=== PATIENT | female | born 1960 | race Caucasian/White ===

== ENCOUNTER 2017-06-24 01:05 | Inpatient (IN) | payer MEDICAID ==
[~2017-06-24] VITALS: Ht 167.6 cm; Wt 51.4 kg
[2017-06-24] VITALS (8 sets, daily range): BP systolic 108–143; BP diastolic 67–89
--- NOTE | ~2017-06-24 | ST ---
[place], [place] EXERCISE STRESS TEST REPORT NAME[id number] UNIT #: [id number] ROOM: 507 DOCTOR: SHAREE BUENROSTRO MD BIRTHDATE: [birth year] DOS: 06/24/2017 INDICATION: Chest pain. PROCEDURE: The patient was brought into the stress lab. The procedure was explained with risks, benefits, and alternatives. Lexiscan was injected. The patient has significant GI symptoms along with shortness of breath following the injection. BLOOD PRESSURE RESPONSE: Resting blood pressure 100/62 with ending blood pressure 104/52. ELECTROCARDIOGRAM INTERPRETATION: Resting electrocardiogram showed normal sinus rhythm, heart rate of 74. There is poor R progression with RSR prime in V1 and V2. Significant ST-T changes in the inferolateral leads. Following the infusion, there was no significant further deterioration of the patient's baseline EKG changes. No arrhythmias were noted. SUMMARY: 1. Adequate Lexiscan stress test. 2. Negative Lexiscan stress test for stress induced myocardial ischemia. 3. No arrhythmias were noted. 4. Myoview results will be reported separately. SHAREE BUENROSTRO MD CM:STRESS:EXERCISE STRESS TEST REPORT [id number] SHAREE BUENROSTRO MD
--- NOTE | ~2017-06-24 | CON ---
[place], [place] REPORT OF CONSULTATION NAME: OZ HART UNIT #: [id number] ROOM: 507 DOCTOR: SHAREE BUENROSTRO MD BIRTHDATE: [birth year] DOS: REQUESTING PHYSICIAN: Dr. Crooks. REASON FOR CONSULTATION: Chest pain. ASSESSMENT: 1. Current presentation with complaint of chest pain that is worse by deep inspiration. 2. Similar complaint back in 1981 where the patient was diagnosed with pericarditis. 3. Active tobacco abuse. 4. Unknown level of lipid. 5. Marijuana abuse. 6. History of migraine. 7. Significantly abnormal baseline EKG. PLAN: 1. ____ enzymes. 2. Check D-dimer. 3. Check CRP. 4. Echocardiogram. 5. Nothing by mouth for a Lexiscan stress test. 6. Enteric-coated aspirin 81 mg. 7. Lipid management for LDL less than 100 mg per dL. 8. Smoking cessation. 9. Early followup as an outpatient within 2-4 weeks upon discharge. HISTORY AND PHYSICAL: The patient is a pleasant 56-year-old female unknown to our practice, was referred by Dr. Crooks for evaluation of chest pain that occurred last night while resting. Pain is left-sided, substernal, almost 6/10, lasted 2 hours. The pain is worse with deep inspiration, surprising enough it gets worse when the patient is still or lie flat. The patient does get worse also if patient moves right to left. The patient is recovering from recent flu-like symptoms over the past 3-4 days. The patient did get slightly nauseated and some chills, but no fever, no night sweats. Reported decreased appetite but no weight loss. The patient is active, but does not follow a regular exercise program. She can walk over a mile but main limitation after that is her low back pain. Never had any symptomatic palpitation or any associated dizziness, lightheadedness or near syncope. Overall what she does now is similar to what she did 6 months ago. No PND, no orthopnea or pedal edema. No reported snoring. PAST MEDICAL HISTORY: As detailed in my assessment. SOCIAL HISTORY: The patient continued to smoke about half pack a day, has been doing this for the past 30 years. No heavy alcohol or illicit drug abuse. FAMILY HISTORY: The patient's dad when she was 6-year-old from a car accident. Her mother is alive at age 75. She has 2 brothers and 2 sisters and no reported [place], [place] REPORT OF CONSULTATION NAME: OZ HART UNIT #: [id number] ROOM: 507 DOCTOR: SHAREE BUENROSTRO MD BIRTHDATE: [birth year] heart problems. CURRENT MEDICATIONS: Lovenox, Protonix, Zofran, Dulcolax, Tylenol, Toradol, and aspirin. ALLERGIES: The patient is allergic to MORPHINE and CODEINE. REVIEW OF SYSTEMS: Currently, the patient denies any headache, diplopia or blurry vision. No fever, no chills, no night sweats. No abdominal pain, no bright blood per rectum or tarry stools. No joint pain, no muscular pain. No anxiety, no depression. No polyuria, no polydipsia, no skin rash. Review of all other systems has been negative. PHYSICAL EXAMINATION: GENERAL: The patient is alert and oriented x 3 ____. VITAL SIGNS: Blood pressure 121/68, heart rate 71, respiratory rate of 16, temperature 98.2. HEENT: Extraocular muscles intact. Pupils equal, round, reactive to light. Conjunctivae: No pallor. Throat: No petechiae. NECK: Good upstroke. Unable to appreciate any bruit, no lymphadenopathy, no thyromegaly. HEART: S1, S2 with faint holosystolic murmur left upper sternal border, unable to appreciate any rub. No retrosternal heave. CHEST AND BACK: No deformities. LUNGS: Clear to auscultation. Good air movement. No wheezing, rales. ABDOMEN: Soft, nontender, present bowel sounds, no masses, no bruits. EXTREMITIES: Lower extremities, no edema. Good distal pulses. NEUROLOGIC: Grossly nonfocal. SKIN: No significant rash. Electrocardiogram showing normal sinus rhythm, heart rate of 79. There is RSR prime in V1 and V2, significant ST depression in inferolateral leads with low voltage QRS. QTc is 436 milliseconds. LABORATORY DATA: White count is 17.0. There is increase in lymphocytes, hemoglobin is 13.9, INR 1.0. Potassium 3.5, BUN 8, creatinine 0.7, GFR more than 60%, low ALT. Troponin less than 0.015. SHAREE BUENROSTRO MD CM:CONSTR:REPORT OF CONSULTATION 0 06/25/17 [id number] interface
[~2017-06-24 01:05] MED LIST: ULTRAM50 MG PO
[2017-06-24 01:20] LABS: BASO # 0.1 10*3/uL (0.0-0.1); BASO % 0.4 % (0.0-1.0); EOS # 0.1 10*3/uL (0.0-0.4); EOS % 0.7 % (1.0-4.0); HEMATOCRIT 41.5 % (37.0-47.0); HEMOGLOBIN 13.9 g/dl (12.0-16.0); IG # 0.1 10*3/uL (0.0-0.1); LYMPH # 3.3 10*3/uL (1.3-4.4); LYMPH % 19.6 % (27.0-41.0); MEAN CELL VOLUME 94.1 fl (81.0-99.0); MEAN CORPUSCULAR HGB 31.5 pg (27.0-31.0); MEAN CORPUSCULAR HGB CONC 33.5 g/dl (33.0-37.0); MEAN PLATELET VOLUME 9.3 fl (9.6-12.3); MONO # 1.4 10*3/uL (0.1-1.0); MONO % 8.2 % (3.0-9.0); NEUT % 70.7 % (47.0-73.0); PLATELET COUNT AUTOMATED 229 10*3/uL (130-400); RED BLOOD COUNT 4.41 10*6/uL (4.10-5.10); RED CELL DISTRI WIDTH 12.4 % (0-14.5)
[2017-06-24 01:28] LABS: PROTHROMBIN TIME 10.4 SECONDS (9.0-12.4)
[2017-06-24 01:36] LABS: ALBUMIN 4.2 gm/dl (3.1-4.5); ALKALINE PHOSPHATASE 101 U/L (45-117); BILIRUBIN, TOTAL 0.5 mg/dl (0.2-1.0); BUN 8 mg/dl (7-24); CARBON DIOXIDE 26 mmol/L (21-32); CHLORIDE 110 mmol/L (98-107); EST GLOM FILT AFRICAN AMERICAN > 60 ml/min; GLUCOSE 121 mg/dL (65-99); MAGNESIUM 2.2 mg/dL (1.5-2.1); POTASSIUM 3.5 mmol/L (3.5-5.1); SGOT/AST 9 IU/L (3-35); SGPT/ALT 11 U/L (12-78); SODIUM 143 mmol/L (136-145); TOTAL PROTEIN 7.5 gm/dL (6.4-8.2)
[2017-06-24 01:37] LABS: TROPONIN I < 0.015 ng/ml (<0.045)
== END 2017-06-24 18:40 | disposition home or self-care (01) | DRG 313 ==
LOC: ED 01:05 → EDHOLD 02:09 → 5E 02:09
PROVIDERS: Student in an Organized Health Care Education/Training Program
PROC: 4A02XM4 Measurement of Cardiac Total Activity, External Approach (ICD-10-PCS; principal; 2017-06-24)
PROC: 3E073KZ Introduction of Other Diagnostic Substance into Coronary Artery, Percutaneous Approach (ICD-10-PCS; 2017-06-24)
DX: R07.89 Other chest pain (principal); E46 Unspecified protein-calorie malnutrition; E87.8 Other disorders of electrolyte and fluid balance, not elsewhere classified; Z68.1 Body mass index [BMI] 19.9 or less, adult; G43.909 Migraine, unspecified, not intractable, without status migrainosus; D72.829 Elevated white blood cell count, unspecified; R11.0 Nausea; R05 Cough; R94.31 Abnormal electrocardiogram [ECG] [EKG]; F12.10 Cannabis abuse, uncomplicated; R73.9 Hyperglycemia, unspecified; F17.210 Nicotine dependence, cigarettes, uncomplicated; Z88.5 Allergy status to narcotic agent; Z88.8 Allergy status to other drugs, medicaments and biological substances; Z83.3 Family history of diabetes mellitus; Z82.49 Family history of ischemic heart disease and other diseases of the circulatory system

== ENCOUNTER 2020-12-26 22:00 | Observation (INO) | payer OTHER ==
[~2020-12-26] VITALS: Ht 165.1 cm; Wt 56.8 kg
[2020-12-26 22:10] VITALS: BP 171/95
[2020-12-26 22:17] LABS: BASO # 0.1 10*3/uL (0.0-0.1); BASO % 0.7 % (0.0-1.0); EOS # 0.2 10*3/uL (0.0-0.4); EOS % 1.6 % (1.0-4.0); HEMATOCRIT 44.5 % (37.0-47.0); LYMPH # 4.4 10*3/uL (1.3-4.4); LYMPH % 36.1 % (27.0-41.0); MEAN CELL VOLUME 91.9 fl (81.0-99.0); MEAN CORPUSCULAR HGB 30.8 pg (27.0-31.0); MEAN CORPUSCULAR HGB CONC 33.5 g/dl (33.0-37.0); MONO # 0.8 10*3/uL (0.1-1.0); MONO % 6.2 % (3.0-9.0); NEUT # 6.7 10*3/uL (2.3-7.9); NEUT % 55.2 % (47.0-73.0); PLATELET COUNT AUTOMATED 283 10*3/uL (130-400); RED BLOOD COUNT 4.84 10*6/uL (4.10-5.10); RED CELL DISTRI WIDTH 12.1 % (0-14.5); WHITE BLOOD COUNT 12.2 10*3/uL (4.8-10.8)
[2020-12-26 22:28] LABS: ACT PARTIAL THROMBO TIME 25.6 SECONDS (20.0-32.1)
[2020-12-26 22:34] LABS: ALBUMIN 4.6 gm/dl (3.1-4.5); ALKALINE PHOSPHATASE 89 U/L (45-117); BUN 12 mg/dl (7-24); CHLORIDE 111 mmol/L (98-107); CREATININE 0.91 mg/dL (0.55-1.02); POTASSIUM 3.3 mmol/L (3.5-5.1); SGOT/AST 8 IU/L (3-35); SGPT/ALT 14 U/L (12-78); SODIUM 142 mmol/L (136-145); TOTAL PROTEIN 7.9 gm/dL (6.4-8.2)
[2020-12-26 22:47] VITALS: BP 122/79
[2020-12-26 22:49] LABS: TROPONIN I < 0.015 ng/ml (<0.045)
[2020-12-26 23:10] VITALS: BP 139/86
[2020-12-27 00:21] VITALS: BP 129/87
[2020-12-27 01:34] VITALS: BP 136/80
[2020-12-27 04:33] LABS: BASO # 0.1 10*3/uL (0.0-0.1); BASO % 0.6 % (0.0-1.0); EOS # 0.2 10*3/uL (0.0-0.4); EOS % 1.6 % (1.0-4.0); HEMATOCRIT 42.5 % (37.0-47.0); LYMPH # 4.4 10*3/uL (1.3-4.4); LYMPH % 34.2 % (27.0-41.0); MEAN CORPUSCULAR HGB 31.2 pg (27.0-31.0); MEAN CORPUSCULAR HGB CONC 33.9 g/dl (33.0-37.0); MONO # 0.9 10*3/uL (0.1-1.0); MONO % 6.8 % (3.0-9.0); NEUT # 7.2 10*3/uL (2.3-7.9); NEUT % 56.6 % (47.0-73.0); PLATELET COUNT AUTOMATED 258 10*3/uL (130-400); RED BLOOD COUNT 4.62 10*6/uL (4.10-5.10); RED CELL DISTRI WIDTH 12.2 % (0-14.5); WHITE BLOOD COUNT 12.8 10*3/uL (4.8-10.8)
[2020-12-27 05:04] LABS: ALBUMIN 4.1 gm/dl (3.1-4.5); ALKALINE PHOSPHATASE 81 U/L (45-117); BUN 11 mg/dl (7-24); CHLORIDE 115 mmol/L (98-107); CHOLESTEROL 212 mg/dL (<200); HDL CHOLESTEROL 45 mg/dl (40-60); LDL CHOLESTEROL 139 mg/dL (9-159); POTASSIUM 3.9 mmol/L (3.5-5.1); SGOT/AST 7 IU/L (3-35); SGPT/ALT 13 U/L (12-78); SODIUM 144 mmol/L (136-145); TOTAL PROTEIN 7.1 gm/dL (6.4-8.2); TRIGLYCERIDES 139 mg/dl (<150); VLDL CHOLESTEROL 28 mg/dL (6-40)
[2020-12-27 06:43] LABS: VITAMIN D, 25-HYDROXY 21.8 ng/mL (30-100)
[2020-12-27 08:00] VITALS: BP 140/84
[2020-12-27] MEDS ORDERED: VITAMIN D350 MC2 PO (10:01)
[2020-12-27] MEDS ORDERED: LIPITOR40 MG PO (10:01)
[2020-12-27 12:00] VITALS: BP 144/78
[2020-12-27 16:00] VITALS: BP 136/79
== END 2020-12-27 18:41 | disposition home or self-care (01) ==
LOC: ED 22:00 → EDHOLD 23:15 → 5E 12-27 01:16
PROVIDERS: Internal Medicine; Social Worker Clinical; ADMIT Family Medicine; ATTEND Family Medicine
DX: E87.6 Hypokalemia (principal); R10.9 Unspecified abdominal pain; R19.7 Diarrhea, unspecified; R42 Dizziness and giddiness; F41.9 Anxiety disorder, unspecified; R00.2 Palpitations; D72.829 Elevated white blood cell count, unspecified; E87.8 Other disorders of electrolyte and fluid balance, not elsewhere classified; E83.41 Hypermagnesemia; R73.9 Hyperglycemia, unspecified; F17.200 Nicotine dependence, unspecified, uncomplicated; Z79.899 Other long term (current) drug therapy

== ENCOUNTER → 2022-01-20 | Outpatient (CLI) | payer OTHER ==
[~2022-01-20] MED LIST changes: +LIPITOR40 MG PO; +VITAMIN D350 MC2 PO
== END | disposition home or self-care (01) ==
LOC: RAD 14:20
PROVIDERS: ATTEND Family Medicine
DX: F17.210 Nicotine dependence, cigarettes, uncomplicated (principal)

== ENCOUNTER 2024-06-03 20:27 | Emergency (ER) | payer OTHER ==
[~2024-06-03] VITALS: Wt 56.7 kg
[2024-06-03] MEDS ORDERED: SODIUM CHLORIDE 0.9% 1,000 ML IV ONE (20:50)
[2024-06-03] MEDS ORDERED: Ondansetron Hydrochloride 4 MG/2 ML VIAL IV ONE (20:50)
[2024-06-03 21:00] LABS: BASO # 0.1 10*3/uL (0.0-0.1); BASO % 0.6 % (0.0-1.0); EOS # 0.2 10*3/uL (0.0-0.4); EOS % 1.8 % (1.0-4.0); HEMATOCRIT 40.8 % (37.0-47.0); LYMPH # 4.2 10*3/uL (1.3-4.4); LYMPH % 36.9 % (27.0-41.0); MEAN CELL VOLUME 94.4 fl (81.0-99.0); MEAN CORPUSCULAR HGB 32.2 pg (27.0-31.0); MEAN CORPUSCULAR HGB CONC 34.1 g/dl (33.0-37.0); MONO # 0.8 10*3/uL (0.1-1.0); MONO % 6.6 % (3.0-9.0); NEUT # 6.2 10*3/uL (2.3-7.9); NEUT % 53.8 % (47.0-73.0); PLATELET COUNT AUTOMATED 240 10*3/uL (130-400); RED BLOOD COUNT 4.32 10*6/uL (4.10-5.10); RED CELL DISTRI WIDTH 12.3 % (0-14.5); WHITE BLOOD COUNT 11.4 10*3/uL (4.8-10.8)
[2024-06-03 21:20] LABS: ALKALINE PHOSPHATASE 73 U/L (46-116); BUN 7 mg/dl (9-23); CHLORIDE 108 mmol/L (98-107); LIPASE 49 U/L (12-53); POTASSIUM 3.5 mmol/L (3.4-5.1); TOTAL PROTEIN 6.9 gm/dL (6.0-8.0)
[2024-06-03 21:21] LABS: SGPT/ALT < 7 U/L (5-49)
[2024-06-03] MEDS ORDERED: Ondansetron4 MG PO (22:26)
== END 2024-06-03 22:30 | disposition home or self-care (01) ==
LOC: ED 20:27
PROVIDERS: Internal Medicine
DX: B34.9 Viral infection, unspecified (principal); R10.12 Left upper quadrant pain; R11.0 Nausea; R19.7 Diarrhea, unspecified; F17.200 Nicotine dependence, unspecified, uncomplicated; Z88.5 Allergy status to narcotic agent; Z88.6 Allergy status to analgesic agent; Z90.710 Acquired absence of both cervix and uterus; Z98.51 Tubal ligation status; Z98.890 Other specified postprocedural states